=== PATIENT | female | born 2000 | race Caucasian/White ===

== ENCOUNTER 2022-05-21 12:34 | Emergency (ER) | payer BC, SELFPAY ==
[2022-05-21 13:24] VITALS: BP 144/66; PULSE 91; RESP 16; TEMP 36.8; O2SAT 100
--- NOTE | 2022-05-21 13:42 | ED.URI ---
HPI - URI/Sore Throat General Chief Complaint: Upper Respiratory Infection Stated Complaint: sorethroat,cough Time Seen by Provider: 05/21/22 13:42 Source: patient Mode of arrival: ambulatory Limitations: no limitations History of Present Illness HPI Narrative: 21-year-old female presents with complaint of sore throat, cough, sinus congestion for 6 days. Afebrile. Patient reports that throat hurts really bad. Taking over the Counter medications to treat her symptoms. she denies nausea vomiting diarrhea. No chest pain or shortness of breath. All systems reviewed and negative except as noted above. Related Data Allergies Allergy/AdvReac Type Severity Reaction Status Date / Time No Known Allergies Allergy Verified 05/21/22 13:21 Review of Systems Review of Systems: CONSTITUTIONAL: Denies fever, chills, or sweats. EYES: Denies visual changes, redness, or discharge. ENT: Reports rhinorrhea, congestion, sore throat. Denies otalgia. CARDIOVASCULAR: Denies chest pain, palpitations, or edema. RESPIRATORY: reports cough. Denies dyspnea. GASTROINTESTINAL: Denies abdominal pain, nausea, vomiting, or diarrhea. GENITOURINARY: Denies dysuria or hematuria. SKIN: Denies rash or itching. MUSCULOSKELETAL: Denies back pain, joint pain, or myalgia. NEUROLOGIC: Denies headache, numbness, or weakness. PSYCHIATRIC: Denies anxiety or depression. All other systems reviewed are negative, except as documented in HPI. PMFSH Comments At time of signature, agree with nursing past medical, surgical, social and family history. There is no relevant family history pertinent to the presenting complaint. Exam Narrative: GENERAL: This is a well-nourished, well-developed patient, in no apparent distress. HEAD: normocephalic, atraumatic. EYES: PERRL. Sclera clear/white. Vision is grossly intact. EARS: External ears normal, auditory canals clear and without drainage, TMs normal without perforation. Hearing grossly intact. NOSE: External nose normal with no obvious nasal discharge, nares without redness, no rhinorrhea. THROAT: Mucous membranes moist, erythema, swelling. No exudates or tonsillar swelling. NECK: Neck supple, non-tender without lymphadenopathy, masses or thyromegaly. CARDIOVASCULAR: Regular rate and rhythm without murmurs, gallops, or rubs. RESPIRATORY: Clear to auscultation. Breath sounds equal bilaterally. No wheezes, rales, or rhonchi. SKIN: warm, Dry, intact with no suspicious lesions or rash, good texture and turgor. NEURO: awake, alert, and oriented to person, place and time. There were no obvious focal neurologic abnormalities. EXTREMITIES: No joint tenderness, effusion, or edema noted. Course Course Level of Care: Express Care Visit Vital Signs Vital signs: Vital Signs Temperature 36.8 C 05/21/22 13:24 Pulse Rate 91 05/21/22 13:24 Respiratory Rate 16 05/21/22 13:24 Blood Pressure 144/66 H 05/21/22 13:24 Pulse Oximetry 100 05/21/22 13:24 Oxygen Delivery Room Air 05/21/22 13:24 Temperature 36.8 C 05/21/22 13:24 Pulse Rate 91 05/21/22 13:24 Respiratory Rate 16 05/21/22 13:24 Blood Pressure 144/66 H 05/21/22 13:24 Pulse Oximetry 100 05/21/22 13:24 Oxygen Delivery Room Air 05/21/22 13:24 Reviewed MDM - URI/Sore Throat MDM Narrative Medical decision making narrative: unable to test patient for strep or flu today due to being out of test kits. Will treat patient with antibiotic due to symptoms and exam findings. Patient is aware of diagnosis, understands and agrees to treatment plan. Anticipatory guidance given. Patient agrees to follow-up as directed and is aware of reasons to seek care at the emergency department. Portions of this record may have been created with voice recognition software Lab Data Labs: Lab Results 05/21/22 Range/Units 13:40 POC SARS CoV-2 Ag Negative (Negative) Discharge Plan Discharge Clinical Impression: Acute phary
== END 2022-05-21 13:58 | disposition home or self-care (01) ==
PROVIDERS: Emergency Provider Nurse Practitioner Family; PCP Physician Assistant
DX: J02.9 Acute pharyngitis, unspecified (principal); Z20.822 Contact with and (suspected) exposure to COVID-19
CPT/HCPCS: 87426; 99203; C9803; G0463